=== PATIENT | male | born 1935 | race Caucasian/White ===

== ENCOUNTER → 2016-10-11 | Outpatient (CLI) | payer OTHER ==
[~2016-10-11] MED LIST: ALIGN4 MG PO; APAP500 PO; ATORVASTATIN CA20 MG PO; BACLOFEN 10 MG10 MG PO; BACLOFEN 10MG T10 MG PO; BACTRIM DS TAB1 EACH PO; BENADRYL25 MG PO; CARDIZEM CD180 MG PO; CENTRUM SILVER1 EAC4 PO; CIPRO250 M1 PO; CIPRO500 MG PO; CIPROFLOXACIN500 M1 PO; COLACE100 MG PO; CORDARONE200 MG PO; CYCLOBENZAPRINE5 MG PO; DILTIAZEM ER60 M1 PO; DULERA 100 MCG/13 GM; DUONEB 2.5-0.5 M3 ML INH; ENULOSE10 GM/15 M PO; FENTANYL TD; FLAGYL500 MG PO; FLONASE 0.05%50 MCG NASAL; FOLIC ACID 1 MG1 MG PO; FOLIC ACID0.4 MG PO; FOLIC ACID1 MG; FOLIC ACID1 MG PO; GABAPENTIN 100100 MG PO; GLUCOPHAGE XR500 MG PO; HYDROCODONE-AP1 EAC6 PO; HYDROCODONE-APA1 TA1; HYDROCODONE-APA1 TA1 PO; IBUPROFEN 800800 MG PO; IRON325 PO; JANUVIA100 MG PO; KLOR-CON 10 ER10 MEQ PO; KLOR-CON 1010 MEQ PO; LACTULOSE10 GM/152; LANTUS SUBQ; LANTUS100 UNIT/M SUBQ; LASIX 20 MG TAB20 MG PO; LATUDA20 MG PO; LEVAQUIN 500 M500 M2 PO; LEVEMIR100 UNIT/1 SUBQ; LEVOTHYROXINE0.05 MG PO; LIDODERM 5%1 PATC1 TRANSDERM; LIORESAL 10 MG10 MG PO; LISINOPRIL10 MG PO; LOPRESSOR 50 MG50 M1 PO; LORAZEPAM 1 MG T1 M1 PO; MAGNESIUM400 MG PO; MAGOX 400400 MG PO; METAXALONE400 MG PO; METAXALONE800 MG PO; METFORMIN HCL500 MG PO; MIRALAX17 GM; MIRALAX17 GM PO; MS CONTIN15 MG PO; MULTIVITAMINS1 EAC7 PO; NEURONTIN 300300 M1 PO; NORCO 7.5-3251 EACH PO; NOVOLOG100 UNIT/1 SUBQ; OMEPRAZOLE20 M2 PO; OXECTA5 MG PO; OXYCONTIN10 M1; OXYCONTIN10 M1 PO; OXYCONTIN20 M1 PO; PACERONE 200 M200 M1; PHENERGAN 25 MG25 M1 PO; PHENERGAN50 MG RC; POTASSIUM20 PO; PREDNISONE50 MG PO; PRILOSEC 20 MG20 MG PO; PRILOSEC20 MG PO; PROTONIX40 M2 PO; PROVENTIL HFA6.7 G1 INH; RESTORIL15 MG PO; SENNA8.6 M1 PO; SKELAXIN 800 M800 M1 PO; SORINE 80 MG TA80 M1 PO; SOTALOL80 MG PO; SPIRIVA INH; SPIRIVA18 MCG INH; THERA-M1 EAC1 PO; THIAMINE HCL100 MG PO; TOPROL XL50 MG; TOPROL XL50 MG PO; TRAMADOL 50 MG50 MG PO; TRAZODONE HCL50 MG PO; TYLENOL325 MG PO; ULTRAM 50MG TAB50 MG PO; UNICOMPLEX M TA1 TA1 PO; URIBEL CAPSULE1 EACH PO; VIAGRA100 MG; VIAGRA100 MG PO; VIAGRA50 MG PO; VITAMIN B-1100 M1; VITAMIN B-1100 M1 PO; VITAMIN D 5050000 I1 PO; VITAMIN D1000 UNI1 PO; VITAMIN D3400 UNIT PO; VYTORIN 10-401 EACH PO; ZETIA10 MG PO; ZOCOR40 MG PO; ZOFRAN ODT4 MG PO
== END ==
LOC: HYPER 07:06
DX: E11.621 Type 2 diabetes mellitus with foot ulcer (principal); L97.511 Non-pressure chronic ulcer of other part of right foot limited to breakdown of skin; J44.9 Chronic obstructive pulmonary disease, unspecified; E11.610 Type 2 diabetes mellitus with diabetic neuropathic arthropathy; D69.6 Thrombocytopenia, unspecified; D50.8 Other iron deficiency anemias; K21.9 Gastro-esophageal reflux disease without esophagitis; I48.91 Unspecified atrial fibrillation; I10 Essential (primary) hypertension; Z79.84 Long term (current) use of oral hypoglycemic drugs; Z87.891 Personal history of nicotine dependence; Z72.89 Other problems related to lifestyle

== ENCOUNTER 2017-08-04 01:27 | Inpatient (IN) | payer OTHER ==
[~2017-08-04] VITALS: Ht 182.9 cm; Wt 71.3 kg
[2017-08-04] VITALS (36 sets, daily range): BP systolic 55–133; BP diastolic 33–106
--- NOTE | ~2017-08-04 | HC ---
[facility] [place] [address] CONSULTATION Name: FATEMEH ARANA Room #: 429-P [facility] IN ..#: [id number] Admission: 08/04/17 Attend Phys: Carlo Cole MD Discharge: 08/09/17 Date of : 37 Report #: [id number] THIS REPORT FOR: //name// CC: Carlo Cole [facility] unknown DATE OF SERVICE: 08/08/2017 HISTORY OF PRESENT ILLNESS: The patient is an 81-year-old white male admitted with increased shortness of breath, tachycardia, and atrial fibrillation. He was noted to have sepsis with atrial fibrillation with rapid ventricular rate and acute renal insufficiency. He was diagnosed with ETOH withdrawal and has been belligerent to the staff. Drug screening was positive for marijuana. He is currently in ETOH withdrawal and has needed Ativan and Haldol. We are seeing him in rehabilitation medicine consultation. PAST MEDICAL HISTORY: Includes COPD. He denied the need for O2 or nebulizers. There is a history of Nfdeuni-Sfbri-Vrutg disease. He was premorbidly wheelchair bound. He also has a history of prostate CA, diabetes mellitus type 2, hypertension, malignant melanoma, and GERD. MEDICATIONS: Please see the full medication listing. ALLERGIES: AMOXICILLIN CAUSES EMESIS. HABITS: Former smoker, quit in the year 1999. Alcohol two bourbon or vodka drinks per day. SOCIAL HISTORY: Lives in a house by himself, wheelchair bound, has a stair glide apparently had a caregiver that is involved and there is note of the home health care case manager ____ that assists. He is from his , but she is involved and apparently visits or checks in on him a couple of times a week. REVIEW OF SYSTEMS: Currently sedated. PHYSICAL EXAMINATION: Sedated 81-year-old male wanting to sleep. EXTREMITIES: Functional range of motion of the upper extremities. Lower extremities are probably grossly 3/5. He has been max assist with attempt to sit to stand, bed to chair was max assist. ASSESSMENT: An 81-year-old male with the following problem list: 1. Phnqlrp-Ruizi-Okghi disease, wheelchair bound. 2. ETOH withdrawal. 3. Sepsis. 4. Atrial fibrillation with rapid ventricular rate. 5. Diabetes mellitus type 2. [facility] [address] [place] [address] CONSULTATION Name: FATEMEH ARANA Room #: 429-P [facility] IN ..#: [id number] Admission: 08/04/17 Attend Phys: Carlo Cole MD Discharge: 08/09/17 Date of : 36 Report #: [id number] 6. Elevated liver function tests. 7. Acute renal insufficiency, resolved. PLAN: The patient has been refusing therapy has been an alcohol withdrawal. I question if he will cooperate with any type of rehabilitation therapy program. At this point, we will continue to follow. <ELECTRONICALLY SIGNED> By: Dima Beard MD 08/20/17 1030 1109 1948 Dima Beard MD /GELA
--- NOTE | ~2017-08-04 | EKG ---
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 : 1935 Requested By: Nohemy King Order Number: [id number] MD: Nicolas Patel Measurements Intervals [place] Rate: 99 P: 107 HI: 107 QRS: -25 QRSD: 102 T: 184 QT: 442 QTc: 568 Interpretive Statements Atrial fibrillation Nonspecific ST and T wave abnormality Compared to ECG 08/04/2017 01:24:28 Heart rate has slowed ST and T wave abnormality is less pronounced Baseline artifact limits interpretation Electronically Signed On 08-06-2017 12:57:50 CDT by Nicolas Patel [email or web address] <ELECTRONICALLY SIGNED> By: Nicolas Patel MD, [facility] 08/06/17 1257 0831 0831 Nicolas Patel MD, [facility] /EPI
--- NOTE | ~2017-08-04 | EKG ---
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: Nahum GODFREY : 1935 Requested By: Sanket Sanchez Order Number: [id number] MD: Nicolas Patel Measurements Intervals [place] Rate: 131 P: [place]: QRS: -33 QRSD: 110 T: 181 QT: 314 QTc: 464 Interpretive Statements Atrial fibrillation Abnormal R-wave progression, late transition Inferior infarct, old Repolarization abnormality, prob rate related Compared to ECG 12/16/2015 09:53:53 ST and T wave abnormality is more pronounced Electronically Signed On 08-06-2017 12:56:54 CDT by Nicolas Patel [email or web address] <ELECTRONICALLY SIGNED> By: Nicolas Patel MD, [facility] 08/06/17 1256 0109 0109 Nicolas Patel MD, [facility] /EPI
--- NOTE | ~2017-08-04 | EKG ---
[address] [place] [address] ELECTROCARDIOGRAM REPORT Name: FATEMEH ARANA Room #: 236-P ADM IN M.R.#: [id number] Admission: 08/04/17 Attend Phys: Kahlil Alvarado DO Discharge: Date of : 36 Report #: [id number] THIS REPORT FOR: //name// [facility] ED Test Date: 2017-08-04 Test Time: 01:24:28 Pat Name: FATEMEH ARANA Department: Room: 236 P Gender: M Awning Spreader: RUSSELL : 1935 Requested By: Nicolas Patel Order Number: [id number] MD: Nicolas Patel Measurements Intervals [place] Rate: 195 P: 69 SC: 151 QRS: -43 QRSD: 78 T: 191 QT: 237 QTc: 427 Interpretive Statements Supraventricular tachycardia, probably atrial fibrillation with a rapid ventricular response Abnormal R-wave progression, late transition Repolarization abnormality, prob rate related Artifact in lead(s) I,II,III,aVR,aVL,aVF,V4 Compared to ECG 12/16/2015 09:53:53 ST and T wave abnormality is more pronounced heart rate has increased Electronically Signed On 08-04-2017 14:31:16 CDT by Nicolas Patel [email or web address] <ELECTRONICALLY SIGNED> By: Nicolas Patel MD, [facility] 08/04/17 1431 0124 0124 Nicolas Patel MD, [facility] /EPI
--- NOTE | ~2017-08-04 | HC ---
[facility] [place] [address] CONSULTATION Name: FATEMEH ARANA Room #: 429-P [facility] IN .R.#: [id number] Admission: 08/04/17 Attend Phys: Carlo Cole MD Discharge: Date of : 36 Report #: [id number] THIS REPORT FOR: //name// CC: FAM unknown Kahlil Alvarado DATE OF SERVICE: 08/04/2017 HISTORY OF PRESENT ILLNESS: The patient is an 81-year-old gentleman with history of diabetes, Qkvsfls-Mhiey-Aaqiz, hypertension, dyslipidemia and paroxysmal atrial fibrillation. Last evening he developed the sudden onset of shortness of breath. Paramedics were summoned and he was found to be in atrial fibrillation with a rapid ventricular response. He was treated with intravenous Cardizem and has converted back to sinus rhythm. In review of his records, it appears that he has had several paroxysms of atrial fibrillation. He tells me in the past there was a decision not to anticoagulate him. The shortness of breath resolved with yarsanism of sinus rhythm. He denies chest heaviness or pressure. He denies history of palpitations, near syncope or syncope. ALLERGIES: HE IS ALLERGIC TO AMOXICILLIN. MEDICATIONS: Include lisinopril 10 mg daily, diltiazem CD 180 mg daily, metformin 1000 mg twice daily, atorvastatin 20 mg daily, levothyroxine 75 mcg daily, tramadol, omeprazole, metoprolol 50 mg twice daily, iron one tablet daily. PAST MEDICAL HISTORY: His past history and medical records have been reviewed and include a history of prior kidney stones with surgery, hypertension, diabetes, Maozowy-Qiydd-Nmcai, dyslipidemia, chronic obstructive pulmonary disease, alcohol use, thrombocytopenia. SOCIAL HISTORY: He is a former smoker. He lives with his independently. FAMILY HISTORY: Notable for hypertension. REVIEW OF SYSTEMS: All systems negative except as that noted above. PHYSICAL EXAMINATION: GENERAL: Reveals a pleasant gentleman who is hard of hearing. VITAL SIGNS: Blood pressure is 112/75, heart rate of 91 and regular. He is afebrile. HEENT: There are neither xanthelasma, subcutaneous xanthomata, oral mucosal or digital cyanosis or kyphoscoliosis present. CHEST: Clear to auscultation and percussion. CARDIAC: Regular rate and rhythm with normal S1, S2. No murmurs, rubs. ABDOMEN: Soft and nontender. [facility] [address] [place] [address] CONSULTATION Name: FATEMEH ARANA Room #: 429-P [facility] IN ..#: [id number] Admission: 08/04/17 Attend Phys: Carlo Cole MD Discharge: Date of : 36 Report #: [id number] EXTREMITIES: Without cyanosis, clubbing or edema. Radial pulses are 2+. NEUROLOGIC: Alert with a nonfocal exam. MUSCULOSKELETAL: His joint change is consistent with Xevcift-Wtspc-Zitae. LABORATORY DATA: Sodium 144, potassium 5.2, creatinine 1.8. Troponin of 0. White count 9.8, hemoglobin 18, hematocrit 55, platelet count 38,000. TSH 9.8. Chest x-ray demonstrates an indeterminate nodule in the left mid lung. IMPRESSION: 1. Atrial fibrillation, now in sinus rhythm. 2. Chronic kidney disease. 3. Diabetes. 4. Reflux disease. 5. Chronic obstructive pulmonary disease. 6. Dyslipidemia. 7. Ubpfozt-Pvkai-Bjzbx. 8. History of anemia, iron deficiency with history of gastritis and diverticulosis. 9. Thrombocytopenia, chronic. RECOMMENDATIONS: 1. Increase Cardizem dose. Continue use of metoprolol. 2. Obtain records from [facility]. The paroxysmal atrial fibrillation does not appear to be new, although recurrent. There has been a decision made in the past not to use systemic anticoagulation, I suspect in part related to his comorbidities and history of iron deficiency anemia. 3. Records from [facility] have been requested for review. <ELECTRONICALLY SIGNED> By: Nicolas Patel MD, FACC 08/07/17 0859 0816 1444 Nicolas Patel MD, FACC /nt
--- NOTE | ~2017-08-04 | 2DMMODE ---
[facility] [address] [place] [address] 2 D/M-MODE ECHOCARDIOGRAM Name: SUMITFATEMEH Kimi Room #: 236-P [facility] IN ..#: [id number] Admission: 08/04/17 Attend Phys: Carlo Cole MD Discharge: Date of : 37 Date of Service: 08/05/17 0935 Report #: [id number] THIS REPORT FOR: //name// APPROVED REPORT Study performed: 08/05/2017 07:58:43 EXAM: Comprehensive 2D, Doppler, and color-flow Echocardiogram Patient Location: ICU Room #: [facility] Status: routine BSA: 1.92 HR: 79 bpm BP: 113/77 mmHg Other Information Study Quality: Technically Difficult Technically limited study due to lung disease, inability to position patient. Indications COPD Diabetes Dyspnea Elevated BNP Echo Enhancing Agent Indication: Endocardial border delineation Agent(s) / Amount(s) Used: Optison 3 cc 2D Dimensions RVDd: 35.77 mm LVEF(%): 39.75 (>50%) IVSd: 13.80 (7-11mm) LVOT Diam: 22.96 (18-24mm) LVDd: 44.32 mm PWd: 14.17 (7-11mm) Ascending Ao: 36.56 (22-36mm) LVDs: 35.81 (25-40mm) Aortic Root: 35.59 mm IVC: 19.00 mm Huizar's LVEF: 39.75 % Volumes Left Atrial Volume (Systole) Single Plane 4CH: 69.50 mL Single Plane 2CH: 61.16 mL LA ESV Index: 39.00 mL/m2 Aortic Valve [facility] [address] [place] [address] 2 D/M-MODE ECHOCARDIOGRAM Name: FATEMEH ARANA Room #: 236-P [facility] IN [facility]#: [id number] Admission: 08/04/17 Attend Phys: Carlo Cole MD Discharge: Date of : 37 Date of Service: 08/05/17 0935 Report #: [id number] LVOT Max P.02 mmHg LVOT Max V: 0.50 m/s LEANNE Vmax: 3.06 cm2 Mitral Valve MV Decel. Time: 254.90 ms MV E Max Ruperto.: 0.68 m/s IVRT: 143.02 ms Pulmonary Valve PV Peak Ruperto.: 0.66 m/s PV Peak Gr.: 1.73 mmHg Tricuspid Valve TR Peak Ruperto.: 2.68 m/s RAP Estimate: 5.00 mmHg TR Peak Gr.: 28.70 mmHg PA Pressure: 34.00 mmHg Left Ventricle The left ventricle is normal size. There is normal LV segmental wall motion. Mild concentric left ventricular hypertrophy. Left ventricular systolic function is normal. LVEF is 55%. This study is not technically sufficient to allow evaluation of the LV diastolic function. Right Ventricle The right ventricle is normal size. The right ventricular systolic function is normal. Atria Left atrium is mildly dilated. Right atrium is dilated. Aortic Valve Mild aortic valve sclerosis, trileaflet. No aortic regurgitation is present. There is no aortic valvular stenosis. Mitral Valve Mild mitral annular calcification. Mild mitral regurgitation. No evidence of mitral valve stenosis. Tricuspid Valve The tricuspid valve is normal in structure. Mild tricuspid regurgitation. PAP is estimated at 34 mmHg. Pulmonic Valve Pulmonic valve is not well visualized. [facility] [place] [address] 2 D/M-MODE ECHOCARDIOGRAM Name: FATEMEH ARANA Room #: 236-P [facility] IN M.R.#: [id number] Admission: 08/04/17 Attend Phys: Carlo Cole MD Discharge: Date of : 37 Date of Service: 08/05/17 0935 Report #: [id number] Great Vessels The aortic root is normal in size. IVC is normal in size and collapses >50% with inspiration. Pericardium There is no pericardial effusion. <Conclusion> Left ventricular systolic function is normal. There is normal LV segmental wall motion. LVEF is 55%. Mild aortic valve sclerosis, trileaflet. No aortic regurgitation or stenosis Mild mitral annular calcification. Mild mitral regurgitation. Mild tricuspid regurgitation. Pulmonary artery pressure estimated at 34 mmHg. There is no pericardial effusion. <ELECTRONICALLY SIGNED> By: Nicolas Patel MD, [facility] 08/05/17934 4 4 Nicolas Patel MD, FAC /INF
[2017-08-04 03:02] LABS: ABSOLUTE NEUTROPHILS 7.2 thou/uL (1.4-8.2); EOSINOPHILS 1.2 % (0.0-3.0); HEMOGLOBIN 18.6 gm/dL (14.0-18.0); RDW 14.7 % (10.5-14.5)
[2017-08-04 03:04] LABS: BASOPHILS 0.4 % (0.0-2.0); HEMATOCRIT 55.2 % (42.0-52.0); LYMPHOCYTES 20.5 % (24.0-44.0); MCH 35.4 pg (26.0-34.0); MCHC 33.6 g/dL (28.0-37.0); MCV 105.3 fL (80.0-100.0); MONOCYTES 4.2 % (1.0-8.0); PLATELET COUNT 38 thou/uL (150-400); POLYS 73.7 % (36.0-66.0); RBC 5.25 mil/uL (4.50-6.00); WBC 9.8 thou/uL (4.0-11.0)
[2017-08-04 03:17] LABS: ANION GAP 22 mmol/L (7-16); BUN 27 mg/dL (7-18); CHLORIDE 103 mmol/L (98-107); CO2 19 mmol/L (21-32); CREATININE 1.8 mg/dL (0.7-1.3); GLUCOSE 216 mg/dL (74-106); POTASSIUM 5.2 mmol/L (3.5-5.1); SODIUM 144 mmol/L (136-145)
[2017-08-04 03:34] LABS: MAGNESIUM 1.5 mg/dL (1.8-2.4); SGOT 58 U/L (15-37); SGPT 102 U/L (30-65); TOTAL BILIRUBIN 2.5 mg/dL (<0.1-1.0); TOTAL PROTEIN 7.5 g/dL (6.4-8.2)
[2017-08-04 03:35] LABS: ALBUMIN 3.3 g/dL (3.4-5.0); TROPONIN-I < 0.04 ng/mL (<0.06)
[2017-08-04 03:54] LABS: CALCIUM 9.9 mg/dL (8.5-10.1)
[2017-08-04 06:09] LABS: URINE BILIRUBIN NEGATIVE (Negative); URINE BLOOD NEGATIVE (Negative); URINE CLARITY CLEAR; URINE COLOR YELLOW; URINE GLUCOSE-RANDOM* TRACE (Negative); URINE KETONES TRACE (Negative); URINE LEUKOCYTES-REFLEX NEGATIVE (Negative); URINE NITRITE-REFLEX NEGATIVE (Negative); URINE PROTEIN (DIPSTICK) NEGATIVE (Negative); URINE SPECIFIC GRAVITY 1.015 (1.005-1.035); URINE UROBILINOGEN 0.2 E.U./dl (0.2-1.0)
[2017-08-04] MEDS ORDERED: LOPRESSOR25 PO (10:18)
[2017-08-04] MEDS ORDERED: TRAZODONE HCL50 MG PO (10:22)
[2017-08-04 16:06] LABS: GLYCOHEMOGLOBIN (HGB A1C) 5.6 % (4.8-5.6)
[2017-08-05] VITALS (11 sets, daily range): BP systolic 97–144; BP diastolic 51–82
[2017-08-05 04:41] LABS: ABSOLUTE NEUTROPHILS 4.2 thou/uL (1.4-8.2); BASOPHILS 0.9 % (0.0-2.0); EOSINOPHILS 2.8 % (0.0-3.0); HEMATOCRIT 38.9 % (42.0-52.0); LYMPHOCYTES 13.5 % (24.0-44.0); MCH 34.9 pg (26.0-34.0); MCHC 33.7 g/dL (28.0-37.0); MCV 103.6 fL (80.0-100.0); MONOCYTES 6.4 % (1.0-8.0); POLYS 76.4 % (36.0-66.0); RBC 3.76 mil/uL (4.50-6.00); RDW 14.5 % (10.5-14.5); WBC 5.5 thou/uL (4.0-11.0)
[2017-08-05 04:43] LABS: CREATININE 1.2 mg/dL (0.7-1.3); MAGNESIUM 1.4 mg/dL (1.8-2.4); POTASSIUM 3.1 mmol/L (3.5-5.1)
[2017-08-05 04:44] LABS: HEMOGLOBIN 13.1 gm/dL (14.0-18.0)
[2017-08-05 04:50] LABS: CALCIUM 7.8 mg/dL (8.5-10.1)
[2017-08-05 07:16] LABS: PLATELET COUNT 28 thou/uL (150-400)
[2017-08-05 14:05] LABS: MAGNESIUM 1.3 mg/dL (1.8-2.4); POTASSIUM 3.5 mmol/L (3.5-5.1)
[2017-08-05 21:51] LABS: MAGNESIUM 1.6 mg/dL (1.8-2.4); POTASSIUM 3.8 mmol/L (3.5-5.1)
[2017-08-06] VITALS (19 sets, daily range): BP systolic 96–139; BP diastolic 59–94
[2017-08-06 05:05] LABS: MAGNESIUM 2.1 mg/dL (1.8-2.4); PHOSPHORUS 2.1 mg/dL (2.5-4.9)
[2017-08-07 00:15] VITALS: BP 128/80
[2017-08-07 04:23] VITALS: BP 126/91
[2017-08-07 07:35] VITALS: BP 129/85
[2017-08-07 15:30] VITALS: BP 120/81
[2017-08-07 20:00] VITALS: BP 121/75
[2017-08-08 06:31] VITALS: BP 139/85
[2017-08-08 07:20] VITALS: BP 114/82
[2017-08-08] MEDS ORDERED: LOPRESSOR100 M1 PO (13:51)
[2017-08-08 22:10] VITALS: BP 131/89
[2017-08-09 04:06] VITALS: BP 136/85
[2017-08-09 07:37] VITALS: BP 127/72
[2017-08-09 12:33] VITALS: BP 127/72
[2017-08-09 13:14] VITALS: BP 127/72
== END 2017-08-09 13:56 | disposition home health service (06) | DRG 896 ==
LOC: ER 01:27 → ICU 04:12 → EROBS 04:12 → ICU 04:58 → 4E 08-06 17:52 → ENTRNSPT 08-09 13:17 → EDTRNSPTSTS 08-09 13:38 → 4E 08-09 13:56
PROVIDERS: Emergency Medicine; Hospitalist; Nurse Practitioner Acute Care
DX: F10.239 Alcohol dependence with withdrawal, unspecified (principal); N17.0 Acute kidney failure with tubular necrosis; I47.1 Supraventricular tachycardia; E03.9 Hypothyroidism, unspecified; K21.9 Gastro-esophageal reflux disease without esophagitis; J44.9 Chronic obstructive pulmonary disease, unspecified; I48.91 Unspecified atrial fibrillation; E83.42 Hypomagnesemia; E78.5 Hyperlipidemia, unspecified; N18.9 Chronic kidney disease, unspecified; E11.22 Type 2 diabetes mellitus with diabetic chronic kidney disease; G60.0 Hereditary motor and sensory neuropathy; D69.6 Thrombocytopenia, unspecified; I12.9 Hypertensive chronic kidney disease with stage 1 through stage 4 chronic kidney disease, or unspecified chronic kidney disease; R91.1 Solitary pulmonary nodule; F39 Unspecified mood [affective] disorder; D50.9 Iron deficiency anemia, unspecified; Z82.49 Family history of ischemic heart disease and other diseases of the circulatory system; Z79.899 Other long term (current) drug therapy; Z88.1 Allergy status to other antibiotic agents; Z87.442 Personal history of urinary calculi; Z85.46 Personal history of malignant neoplasm of prostate; Z87.891 Personal history of nicotine dependence
CPT/HCPCS: 10078; 10783

== ENCOUNTER 2017-08-29 13:36 | Inpatient (IN) | payer OTHER ==
[~2017-08-29] VITALS: Ht 182.9 cm; Wt 78.3 kg
--- NOTE | ~2017-08-29 | EKG ---
[address] [address] ELECTROCARDIOGRAM REPORT Name: TRINH ARANARICK Kimi Room #: 170-4 ADM IN M.R.#: [id number] Admission: 08/29/17 Attend Phys: Derek García MD Discharge: Date of : 36 Report #: [id number] THIS REPORT FOR: //name// [facility] ED Test Date: 2017-08-29 Test Time: 14:49:34 Pat Name: FATEMEH ARANA Department: Room: 170 Gender: M Laryngologist: SAMUEL : 1935 Requested By: Haley Garrett Order Number: [id number] MD: Lenny Rodriguez Measurements Intervals [place] Rate: 129 P: AR: QRS: -42 QRSD: 81 T: 63 QT: 334 QTc: 490 Interpretive Statements Atrial fibrillation Ventricular premature complex Electronically Signed On 08-29-2017 16:13:52 CDT by Lenny Rodriguez [email or web address] <ELECTRONICALLY SIGNED> By: Lenny Rodriguez MD 08/29/17 1613 1449 1449 MD TOM Youngblood
--- NOTE | ~2017-08-29 | HC ---
[facility] [place] [address] CONSULTATION Name: FATEMEH ARANA Room #: 202-P [facility] IN .R.#: [id number] Admission: 08/29/17 Attend Phys: Derek Garcaí MD Discharge: 08/30/17 Date of : 36 Report #: [id number] THIS REPORT FOR: //name// CC: [facility] physician/PCP Derek García HISTORY OF PRESENT ILLNESS: This patient is seen in consultation regarding thrombocytopenia and anemia. He was recently discharged from [facility] in early July with similar findings. He was admitted with complaints of nausea, vomiting, diarrhea with questionable melena. His platelets have dropped from their usual 30,000-16,000. He is a patient of Dr. Lewis and underwent previous resection of a melanoma involving his face with subsequent X-ray therapy to the left neck and upper chest for a stage 3, T4B, N1M0 malignant melanoma involving 1 of 2 lymph nodes with small perineural invasion and a Breslow thickness of 4.7 mm. He is a known alcohol consumer and states that he has been drinking. His earlier labs, from when he last saw Dr. Lewis, showed a white count of 6600, hematocrit of 51% and a platelet count of 33,000. PAST MEDICAL HISTORY: Significant for prior kidney stones with medically-managed hypertension, diabetes, dyslipidemia, chronic obstructive pulmonary disease and Tqrmemu-Qloka-Oaatl. MEDICATIONS: Listed on the MFR. ALLERGIES: AMOXICILLIN. SOCIAL HISTORY: He lives independently and is a former smoker. He continues to drink alcohol on a daily basis. FAMILY HISTORY: Positive for hypertension. REVIEW OF SYSTEMS: Negative for any bright red blood loss. He has had no gum, nose or mouth bleeding that he has detected. Remaining system review is as in history of present illness. PHYSICAL EXAMINATION: GENERAL: Shows an alert male who is hard of hearing. He is currently normotensive. HEENT: Shows no xanthelasma. LUNGS: His chest is clear. CARDIOVASCULAR: Normal S1, S2. ABDOMEN: Did not reveal palpable spleen. EXTREMITIES: No clubbing, cyanosis, edema. NEUROLOGIC: No focal localizing signs. [facility] [address] [place] [address] CONSULTATION Name: FATEMEH ARANA Room #: 202-P [facility] IN [facility].#: [id number] Admission: 08/29/17 Attend Phys: Derek García MD Discharge: 08/30/17 Date of : 36 Report #: [id number] PSYCHIATRIC: Not agitated or confused. LABORATORY DATA: Showed a platelet count of 16,000 with normal coagulation studies and fibrinogen. CT scan showed nodular liver, compatible with cirrhosis. ASSESSMENT AND PLAN: Pmewx-in-fueehjj thrombocytopenia in a patient with known liver disease/cirrhosis, ongoing alcohol consumption. On admission, he was hypotensive as well as having elevated lactic acidosis, I suspect this is the cause of his further drop in thrombocytopenia. He is not in need of platelet transfusion at this time and would observe only and I suspect that he will recover towards his previous 30,000 baseline. He does not currently have evidence of either disseminated intravascular coagulation or thrombotic thrombocytopenic purpura. Thanks for asking us to be involved in his care. By: 1150 1325 Aggie Sutton MD /nt
[~2017-08-29 13:36] MED LIST changes: +LOPRESSOR100 M1 PO; +LOPRESSOR25 PO
[2017-08-29 13:39] VITALS: BP 110/60
[2017-08-29 14:04] LABS: HEMOGLOBIN 17.1 gm/dL (14.0-18.0); MCHC 33.6 g/dL (28.0-37.0)
[2017-08-29 14:06] LABS: EOSINOPHILS 0.6 % (0.0-3.0); HEMATOCRIT 50.8 % (42.0-52.0); MCH 34.1 pg (26.0-34.0); MCV 101.6 fL (80.0-100.0); POLYS 68.4 % (36.0-66.0); RDW 15.1 % (10.5-14.5); WBC 8.7 thou/uL (4.0-11.0)
[2017-08-29 14:11] LABS: CALCIUM 8.8 mg/dL (8.5-10.1); CREATININE 1.5 mg/dL (0.7-1.3); POTASSIUM 4.5 mmol/L (3.5-5.1)
[2017-08-29 14:17] LABS: ALBUMIN 3.1 g/dL (3.4-5.0); TOTAL BILIRUBIN 1.7 mg/dL (<0.1-1.0); TOTAL PROTEIN 6.7 g/dL (6.4-8.2)
[2017-08-29 14:41] LABS: PLATELET COUNT 28 thou/uL (150-400)
[2017-08-29 16:06] LABS: URINE BILIRUBIN 1+ (Negative); URINE BLOOD NEGATIVE (Negative); URINE CLARITY CLEAR; URINE COLOR YELLOW; URINE GLUCOSE-RANDOM* NEGATIVE (Negative); URINE KETONES 1+ (Negative); URINE LEUKOCYTES NEGATIVE (Negative); URINE NITRITE NEGATIVE (Negative); URINE PROTEIN (DIPSTICK) TRACE (Negative); URINE SPECIFIC GRAVITY 1.025 (1.005-1.035)
[2017-08-29 16:09] LABS: ICTOTEST (BILI CONFIRMATORY) Negative (Negative)
[2017-08-29 17:10] VITALS: BP 105/67; BP 121/67
[2017-08-29 18:13] VITALS: BP 106/74
[2017-08-29 19:46] VITALS: BP 128/74
[2017-08-29 20:37] LABS: HEMOGLOBIN 16.2 gm/dL (14.0-18.0)
[2017-08-29 20:39] LABS: ABSOLUTE NEUTROPHILS 4.9 thou/uL (1.4-8.2); BASOPHILS 1.1 % (0.0-2.0); EOSINOPHILS 0.7 % (0.0-3.0); HEMATOCRIT 47.5 % (42.0-52.0); LYMPHOCYTES 14.8 % (24.0-44.0); MCH 34.8 pg (26.0-34.0); MCHC 34.2 g/dL (28.0-37.0); MCV 101.9 fL (80.0-100.0); MONOCYTES 8.4 % (1.0-8.0); RBC 4.66 mil/uL (4.50-6.00); RDW 15.2 % (10.5-14.5); WBC 6.6 thou/uL (4.0-11.0)
[2017-08-29 20:43] LABS: PLATELET COUNT 17 thou/uL (150-400)
[2017-08-29 20:59] LABS: MAGNESIUM 1.1 mg/dL (1.8-2.4)
[2017-08-29 21:17] LABS: FOLIC ACID 8.8 ng/mL (8.6-58.9)
[2017-08-29 21:21] LABS: AMP/METHAMP Negative (Negative); BARBITURATES Negative (Negative); BENZODIAZEPINES Negative (Negative); COCAINE Negative (Negative); METHADONE Negative (Negative); OPIATES Negative (Negative); PCP Negative (Negative)
[2017-08-29 23:54] VITALS: BP 82/55
[2017-08-30 03:31] VITALS: BP 89/57
[2017-08-30 06:09] LABS: WBC 5.5 thou/uL (4.0-11.0)
[2017-08-30 06:10] LABS: HEMATOCRIT 39.7 % (42.0-52.0); MCH 34.6 pg (26.0-34.0); MCHC 34.2 g/dL (28.0-37.0); MCV 101.4 fL (80.0-100.0); RBC 3.92 mil/uL (4.50-6.00)
[2017-08-30 06:20] LABS: CREATININE 1.2 mg/dL (0.7-1.3); POTASSIUM 3.8 mmol/L (3.5-5.1)
[2017-08-30 06:31] LABS: HEMOGLOBIN 13.6 gm/dL (14.0-18.0)
[2017-08-30 07:05] VITALS: BP 120/91
[2017-08-30 09:17] LABS: % SATURATION 73 % (20-39); IRON 133 ug/dL (65-175); TIBC 183 ug/dL (250-450)
[2017-08-30 09:18] LABS: ALBUMIN 2.8 g/dL (3.4-5.0); DIRECT BILIRUBIN 0.7 mg/dL (<0.1-0.3); TOTAL BILIRUBIN 1.6 mg/dL (<0.1-1.0); TOTAL PROTEIN 5.8 g/dL (6.4-8.2)
[2017-08-30 09:41] LABS: ABSOLUTE RETIC COUNT 0.0507 10^6/uL; OBSERVED RETIC COUNT 1.28 % (0.6-2.6)
[2017-08-30 11:08] VITALS: BP 80/52
[2017-08-30 11:26] LABS: APTT 27.3 Seconds (24.5-32.8); FIBRINOGEN 209.5 mg/dL (210-360); INR 1.2; PROTIME 11.9 Seconds (9.3-11.4)
[2017-08-30 22:09] LABS: HAV IgM AB (ANTI-HAV IgM) Negative (Negative); HEPATITIS B SURFACE AG Negative (Negative); HEPATITIS C VIRUS AB <0.1 (0.0-0.9)
== END 2017-08-30 15:55 | disposition left against medical advice (07) | DRG 377 ==
LOC: ER 13:36 → EROBS 15:42 → 2N 15:42
PROVIDERS: Internal Medicine; Internal Medicine Hematology & Oncology; Nurse Practitioner; Physician Assistant
DX: K92.2 Gastrointestinal hemorrhage, unspecified (principal); E43 Unspecified severe protein-calorie malnutrition; E03.9 Hypothyroidism, unspecified; I48.91 Unspecified atrial fibrillation; N18.9 Chronic kidney disease, unspecified; I12.9 Hypertensive chronic kidney disease with stage 1 through stage 4 chronic kidney disease, or unspecified chronic kidney disease; F10.10 Alcohol abuse, uncomplicated; I25.10 Atherosclerotic heart disease of native coronary artery without angina pectoris; D50.9 Iron deficiency anemia, unspecified; E11.22 Type 2 diabetes mellitus with diabetic chronic kidney disease; F31.9 Bipolar disorder, unspecified; D69.6 Thrombocytopenia, unspecified; E78.5 Hyperlipidemia, unspecified; K70.30 Alcoholic cirrhosis of liver without ascites; J44.9 Chronic obstructive pulmonary disease, unspecified; K21.9 Gastro-esophageal reflux disease without esophagitis; Z87.442 Personal history of urinary calculi; Z85.820 Personal history of malignant melanoma of skin; Z85.46 Personal history of malignant neoplasm of prostate; Z87.891 Personal history of nicotine dependence; Z79.51 Long term (current) use of inhaled steroids; Z79.899 Other long term (current) drug therapy; Z88.1 Allergy status to other antibiotic agents; Z82.49 Family history of ischemic heart disease and other diseases of the circulatory system
CPT/HCPCS: 10078

== ENCOUNTER 2017-09-23 12:14 | Inpatient (IN) | payer OTHER ==
[~2017-09-23] VITALS: Ht 182.9 cm; Wt 74.8 kg
--- NOTE | ~2017-09-23 | EKG ---
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: SAMUEL : 1935 Requested By: Betito Wilkins Order Number: [id number] MD: Nicolas Patel Measurements Intervals [place] Rate: 147 P: NC: QRS: -45 QRSD: 83 T: 61 QT: 327 QTc: 512 Interpretive Statements Atrial fibrillation with rapid V-rate Low voltage QRS Poor R wave progression Nonspecific ST and T wave abnormality Compared to ECG 08/29/2017 14:49:34 Nonspecific change in the ST and T-wave segments Electronically Signed On 09-24-2017 8:50:38 CDT by Nicolas Patel [email or web address] <ELECTRONICALLY SIGNED> By: Nicolas Patel MD, [facility] 09/24/17 0850 1252 1252 Nicolas Patel MD, [facility] /EPI
--- NOTE | ~2017-09-23 | HC ---
[facility] [place] [address] CONSULTATION Name: FATEMEH ARANA Room #: 363-P [facility] IN [facility].#: [id number] Admission: 09/23/17 Attend Phys: Tyron Calvert MD Discharge: Date of : 36 Report #: [id number] THIS REPORT FOR: //name// CC: [facility] physician/PCP Tyron Calvert DATE OF SERVICE: 09/25/2017 HISTORY OF PRESENT ILLNESS: This gentleman was readmitted through the emergency room with known atrial fib and ongoing thrombocytopenia. I have been asked to evaluate his worsening platelet count, which has dropped subsequent to hospitalization. He was just seen on August 29 with thrombocytopenia and anemia. His platelets on admission were in the 60 and 47,000 range, dropping down to 12,000. He is a known alcohol consumer with ongoing consumption. He had been seen previously by Tomás Lewis at [facility] following resection of a melanoma involving of his face with subsequent radiation therapy to left neck and upper chest for a stage III T4b M1 M0 malignant melanoma involving 1 of 2 lymph nodes with a small focus of perineural invasion and a Breslow thickness of 4.7 mm. PAST MEDICAL HISTORY: Prior kidney stones and medically managed hypertension. He is diabetic with dyslipidemia, chronic obstructive pulmonary disease, and Zbiknlm-Bftne-Rjbma. MEDICATIONS: As listed on MFR. ALLERGIES: AMOXICILLIN. SOCIAL HISTORY: He lives independently and is reformed smoker. He continues to drink alcohol on a daily basis. FAMILY HISTORY: Positive for hypertension. REVIEW OF SYSTEMS: Negative for any gum, nose or mouth bleeding. These detected. He has not had evidence of bright red blood in stool. His remaining system review is negative. PHYSICAL EXAMINATION: GENERAL: Shows an alert male who is hard of hearing. HEENT: Shows no xanthelasma. CHEST: Clear. CARDIOVASCULAR: Normal S1, S2. ABDOMEN: Shows no palpable spleen. EXTREMITIES: No clubbing, cyanosis or edema. [facility] [address] [place] [address] CONSULTATION Name: FATEMEH ARANA Room #: 363-[facility] IN [facility].#: [id number] Admission: 09/23/17 Attend Phys: Tyron Calvert MD Discharge: Date of : 36 Report #: [id number] NEUROLOGIC: No focal localizing signs. PSYCHIATRIC: He is not agitated or confused. LYMPHATICS: No suspicious adenopathy. LABORATORY DATA: Shows thrombocytopenia as discussed. ASSESSMENT AND PLAN: Probable acute on chronic thrombocytopenia related to his known liver disease and cirrhosis, as well as ongoing alcohol consumption. I am concerned that this recent drop may be related to Lovenox. It was started prophylactically on hospitalization and I have held this pending results of heparin-associated antibody. Earlier studies last month showed no evidence of disseminated intravascular coagulation or thrombotic thrombocytopenic purpura and will be repeated. Further recommendations will be forthcoming. Thanks again for allowing me to see him with you in consultation and allowing me to participate in his care. <ELECTRONICALLY SIGNED> By: Missael Saldivar MD 10/02/17 2135 2115 0302 Aggie Sutton MD /nt
[2017-09-23 12:15] VITALS: BP 116/78
[2017-09-23 12:43] LABS: ABSOLUTE NEUTROPHILS 4.3 thou/uL (1.4-8.2); RBC 4.57 mil/uL (4.50-6.00); WBC 5.8 thou/uL (4.0-11.0)
[2017-09-23 12:44] LABS: EOSINOPHILS 0.7 % (0.0-3.0); HEMATOCRIT 45.9 % (42.0-52.0); HEMOGLOBIN 15.7 gm/dL (14.0-18.0); LYMPHOCYTES 15.7 % (24.0-44.0); MCH 34.3 pg (26.0-34.0); MCHC 34.2 g/dL (28.0-37.0); MCV 100.4 fL (80.0-100.0); MONOCYTES 8.8 % (1.0-8.0); POLYS 73.8 % (36.0-66.0)
[2017-09-23 12:48] LABS: CREATININE 1.2 mg/dL (0.7-1.3)
[2017-09-23 12:49] LABS: MAGNESIUM 1.1 mg/dL (1.8-2.4); POTASSIUM 4.7 mmol/L (3.5-5.1)
[2017-09-23 12:55] LABS: ALBUMIN 3.1 g/dL (3.4-5.0); DIRECT BILIRUBIN 1.1 mg/dL (<0.1-0.3); TOTAL PROTEIN 6.8 g/dL (6.4-8.2)
[2017-09-23 12:56] LABS: PLATELET COUNT 47 thou/uL (150-400); PLATELET ESTIMATE DECREASED
[2017-09-23 12:58] LABS: BE(vivo) -0.6 mmol/L (-2 to +3); HCO3 23.6 mmol/L (22.0-26.0); PCO2 VENOUS 37.9 mmHg (41.0-51.0); PO2 VENOUS 67.7 mmHg (35.0-45.0)
[2017-09-23 14:41] LABS: URINE BILIRUBIN 1+ (Negative); URINE BLOOD NEGATIVE (Negative); URINE CLARITY CLEAR; URINE COLOR YELLOW; URINE GLUCOSE-RANDOM* NEGATIVE (Negative); URINE KETONES 1+ (Negative); URINE LEUKOCYTES-REFLEX NEGATIVE (Negative); URINE NITRITE-REFLEX NEGATIVE (Negative); URINE PROTEIN (DIPSTICK) NEGATIVE (Negative); URINE SPECIFIC GRAVITY <= 1.005 (1.005-1.035)
[2017-09-23 14:45] LABS: ICTOTEST (BILI CONFIRMATORY) Positive (Negative)
[2017-09-23 14:50] LABS: AMP/METHAMP Negative (Negative); BARBITURATES Negative (Negative); BENZODIAZEPINES Negative (Negative); COCAINE Negative (Negative); METHADONE Negative (Negative); OPIATES Negative (Negative); PCP Negative (Negative)
[2017-09-23 16:23] VITALS: BP 119/75
[2017-09-23 20:00] VITALS: BP 146/99
[2017-09-24] VITALS (8 sets, daily range): BP systolic 80–125; BP diastolic 52–88
[2017-09-24 05:35] LABS: HEMATOCRIT 42.1 % (42.0-52.0); HEMOGLOBIN 14.4 gm/dL (14.0-18.0); MCH 34.3 pg (26.0-34.0); MCHC 34.3 g/dL (28.0-37.0); MCV 99.9 fL (80.0-100.0); RBC 4.21 mil/uL (4.50-6.00); RDW 15.9 % (10.5-14.5); WBC 3.9 thou/uL (4.0-11.0)
[2017-09-24 05:48] LABS: CALCIUM 8.1 mg/dL (8.5-10.1)
[2017-09-24 05:52] LABS: POTASSIUM 4.3 mmol/L (3.5-5.1)
[2017-09-24 06:04] LABS: ALBUMIN 2.8 g/dL (3.4-5.0); DIRECT BILIRUBIN 1.3 mg/dL (<0.1-0.3); TOTAL BILIRUBIN 2.1 mg/dL (<0.1-1.0); TOTAL PROTEIN 5.7 g/dL (6.4-8.2)
[2017-09-25 00:07] VITALS: BP 90/60
[2017-09-25 04:00] VITALS: BP 112/59
[2017-09-25 08:10] VITALS: BP 102/64
[2017-09-25 08:42] LABS: MCHC 33.5 g/dL (28.0-37.0); MCV 100.7 fL (80.0-100.0)
[2017-09-25 08:43] LABS: HEMOGLOBIN 13.7 gm/dL (14.0-18.0); MCH 33.8 pg (26.0-34.0); RBC 4.07 mil/uL (4.50-6.00); WBC 2.6 thou/uL (4.0-11.0)
[2017-09-25 09:02] LABS: ALBUMIN 2.5 g/dL (3.4-5.0); CALCIUM 7.6 mg/dL (8.5-10.1); CREATININE 1.2 mg/dL (0.7-1.3); MAGNESIUM 1.2 mg/dL (1.8-2.4); TOTAL BILIRUBIN 1.9 mg/dL (<0.1-1.0); TOTAL PROTEIN 5.4 g/dL (6.4-8.2)
[2017-09-25 12:20] VITALS: BP 119/77
[2017-09-25 13:50] LABS: INR 1.2; PROTIME 11.8 Seconds (9.3-11.4)
[2017-09-25 13:51] LABS: APTT 26.8 Seconds (24.5-32.8); D-DIMER 1.95 ug/mLFEU (0.19-0.50); FIBRINOGEN 300.2 mg/dL (210-360)
[2017-09-25 16:30] VITALS: BP 108/64
[2017-09-25 19:21] VITALS: BP 103/64
[2017-09-26 04:10] VITALS: BP 144/69
[2017-09-26 06:42] LABS: HEMOGLOBIN 15.1 gm/dL (14.0-18.0); RDW 15.6 % (10.5-14.5)
[2017-09-26 06:45] LABS: ABSOLUTE RETIC COUNT 0.0369 10^6/uL; HEMATOCRIT 43.5 % (42.0-52.0); MCH 34.6 pg (26.0-34.0); MCHC 34.6 g/dL (28.0-37.0); MCV 99.9 fL (80.0-100.0); OBSERVED RETIC COUNT 0.85 % (0.6-2.6); RBC 4.36 mil/uL (4.50-6.00); WBC 2.9 thou/uL (4.0-11.0)
[2017-09-26 07:07] VITALS: BP 136/83
[2017-09-26 08:02] LABS: FOLIC ACID > 40.0 ng/mL (8.6-58.9)
[2017-09-26 10:17] LABS: ABSOLUTE NEUTROPHILS 2.3 thou/uL (1.4-8.2)
[2017-09-26 10:19] LABS: PLATELET COUNT 11 thou/uL (150-400)
[2017-09-26 11:37] VITALS: BP 113/73
[2017-09-26 16:18] VITALS: BP 132/90
[2017-09-26 18:55] VITALS: BP 112/75
[2017-09-27] VITALS (7 sets, daily range): BP systolic 108–147; BP diastolic 61–97
[2017-09-27 06:06] LABS: HEMATOCRIT 44.9 % (42.0-52.0); HEMOGLOBIN 15.4 gm/dL (14.0-18.0); MCH 34.1 pg (26.0-34.0); MCHC 34.2 g/dL (28.0-37.0); MCV 99.7 fL (80.0-100.0); RBC 4.51 mil/uL (4.50-6.00); RDW 16.4 % (10.5-14.5); WBC 3.8 thou/uL (4.0-11.0)
[2017-09-27 06:17] LABS: CALCIUM 7.9 mg/dL (8.5-10.1); CREATININE 0.9 mg/dL (0.7-1.3)
[2017-09-28 04:45] VITALS: BP 121/82
[2017-09-28 06:04] LABS: MCH 34.2 pg (26.0-34.0); MCV 100.5 fL (80.0-100.0)
[2017-09-28 06:06] LABS: HEMATOCRIT 40.1 % (42.0-52.0); HEMOGLOBIN 13.6 gm/dL (14.0-18.0); RBC 3.99 mil/uL (4.50-6.00); RDW 16.2 % (10.5-14.5); WBC 3.5 thou/uL (4.0-11.0)
[2017-09-28 06:16] LABS: CALCIUM 7.7 mg/dL (8.5-10.1); CREATININE 0.9 mg/dL (0.7-1.3); MAGNESIUM 1.3 mg/dL (1.8-2.4); POTASSIUM 3.5 mmol/L (3.5-5.1)
[2017-09-28 07:33] VITALS: BP 127/84
[2017-09-28 11:28] VITALS: BP 116/82
[2017-09-28 15:27] VITALS: BP 132/94
[2017-09-28 19:15] VITALS: BP 120/80
[2017-09-29 04:32] VITALS: BP 133/90
[2017-09-29 05:49] LABS: HEMATOCRIT 43.8 % (42.0-52.0); HEMOGLOBIN 15.2 gm/dL (14.0-18.0); MCH 34.6 pg (26.0-34.0); MCHC 34.7 g/dL (28.0-37.0); MCV 99.9 fL (80.0-100.0); RBC 4.39 mil/uL (4.50-6.00); RDW 16.1 % (10.5-14.5); WBC 3.9 thou/uL (4.0-11.0)
[2017-09-29 05:58] LABS: CALCIUM 8.4 mg/dL (8.5-10.1); CREATININE 0.9 mg/dL (0.7-1.3); MAGNESIUM 1.1 mg/dL (1.8-2.4); POTASSIUM 3.4 mmol/L (3.5-5.1)
[2017-09-29 07:33] VITALS: BP 137/91
[2017-09-29 11:10] VITALS: BP 129/88
[2017-09-29 15:53] VITALS: BP 135/95
[2017-09-29 16:10] VITALS: BP 133/86
[2017-09-29 20:00] VITALS: BP 142/77
[2017-09-29 20:55] LABS: MCH 34.3 pg (26.0-34.0); RDW 16.3 % (10.5-14.5)
[2017-09-29 20:56] LABS: HEMATOCRIT 39.2 % (42.0-52.0); HEMOGLOBIN 13.3 gm/dL (14.0-18.0); MCV 100.8 fL (80.0-100.0); RBC 3.89 mil/uL (4.50-6.00); WBC 2.5 thou/uL (4.0-11.0)
[2017-09-30 04:00] VITALS: BP 149/91
[2017-09-30 04:18] LABS: CALCIUM 8.3 mg/dL (8.5-10.1); CREATININE 0.9 mg/dL (0.7-1.3); POTASSIUM 3.1 mmol/L (3.5-5.1)
[2017-09-30 04:22] LABS: HEMATOCRIT 39.9 % (42.0-52.0); HEMOGLOBIN 13.6 gm/dL (14.0-18.0); MCH 34.1 pg (26.0-34.0); MCV 100.3 fL (80.0-100.0); RBC 3.98 mil/uL (4.50-6.00); RDW 16.3 % (10.5-14.5); WBC 2.2 thou/uL (4.0-11.0)
[2017-09-30 04:25] LABS: MAGNESIUM 0.9 mg/dL (1.8-2.4)
[2017-09-30 07:56] VITALS: BP 133/98
[2017-09-30 13:45] LABS: ALBUMIN 2.3 g/dL (3.4-5.0); DIRECT BILIRUBIN 1.1 mg/dL (<0.1-0.3); TOTAL BILIRUBIN 1.9 mg/dL (<0.1-1.0); TOTAL PROTEIN 7.7 g/dL (6.4-8.2)
[2017-09-30 17:32] VITALS: BP 140/91
[2017-09-30 19:22] VITALS: BP 99/65
[2017-10-01 03:56] VITALS: BP 126/80
[2017-10-01 08:36] VITALS: BP 136/92
[2017-10-01 09:51] LABS: HEMOGLOBIN 15.3 gm/dL (14.0-18.0); MCH 34.5 pg (26.0-34.0); RBC 4.43 mil/uL (4.50-6.00)
[2017-10-01 09:53] LABS: HEMATOCRIT 44.6 % (42.0-52.0); MCHC 34.3 g/dL (28.0-37.0); MCV 100.6 fL (80.0-100.0); PLATELET COUNT 45 thou/uL (150-400); RDW 16.6 % (10.5-14.5)
[2017-10-01 09:54] LABS: WBC 1.9 thou/uL (4.0-11.0)
[2017-10-01 10:23] LABS: ABSOLUTE NEUTROPHILS 1.1 thou/uL (1.4-8.2)
[2017-10-01 10:24] LABS: ANISOCYTOSIS SLIGHT
[2017-10-01 11:51] VITALS: BP 101/63
[2017-10-01 15:43] VITALS: BP 95/59
[2017-10-01 19:55] VITALS: BP 110/74
[2017-10-02 04:53] VITALS: BP 122/80
[2017-10-02 05:18] LABS: CALCIUM 8.8 mg/dL (8.5-10.1); POTASSIUM 3.1 mmol/L (3.5-5.1)
[2017-10-02 05:28] LABS: HEMATOCRIT 38.7 % (42.0-52.0); MCH 34.1 pg (26.0-34.0); MCHC 34.3 g/dL (28.0-37.0); MCV 99.5 fL (80.0-100.0); RBC 3.89 mil/uL (4.50-6.00); RDW 16.3 % (10.5-14.5)
[2017-10-02 05:34] LABS: HEMOGLOBIN 13.3 gm/dL (14.0-18.0); WBC 1.5 thou/uL (4.0-11.0)
[2017-10-02 07:59] VITALS: BP 126/86
[2017-10-02 12:00] VITALS: BP 135/87
[2017-10-02 17:21] VITALS: BP 132/89
[2017-10-02 19:08] VITALS: BP 114/72
[2017-10-03 03:09] VITALS: BP 146/76
[2017-10-03 06:26] LABS: HEMATOCRIT 41.6 % (42.0-52.0); HEMOGLOBIN 14.1 gm/dL (14.0-18.0); MCH 33.8 pg (26.0-34.0); MCHC 33.9 g/dL (28.0-37.0); MCV 99.7 fL (80.0-100.0); RBC 4.17 mil/uL (4.50-6.00); RDW 16.1 % (10.5-14.5); WBC 2.2 thou/uL (4.0-11.0)
[2017-10-03 06:42] LABS: CALCIUM 8.7 mg/dL (8.5-10.1); CREATININE 1.1 mg/dL (0.7-1.3); POTASSIUM 3.3 mmol/L (3.5-5.1)
[2017-10-03 08:21] VITALS: BP 131/92
[2017-10-03] MEDS ORDERED: CATAPRES-TTS 20.2 MG TRANSDERM (13:59)
[2017-10-03] MEDS ORDERED: VITAMIN B-1100 M2 PO (14:00)
[2017-10-03 14:39] VITALS: BP 133/97
[2017-10-03 15:00] VITALS: BP 133/97
== END 2017-10-03 16:48 | disposition home health service (06) | DRG 432 ==
LOC: ER 12:14 → EROBS 14:09 → 3W 14:09 → ENTRNSPT 10-03 15:39 → EDTRNSPTSTS 10-03 15:41 → 3W 10-03 16:48
PROVIDERS: Hospitalist; Internal Medicine; Internal Medicine Hematology & Oncology; Nurse Practitioner; Physician Assistant; Registered Nurse
DX: K70.30 Alcoholic cirrhosis of liver without ascites (principal); G93.40 Encephalopathy, unspecified; E43 Unspecified severe protein-calorie malnutrition; F10.129 Alcohol abuse with intoxication, unspecified; E11.9 Type 2 diabetes mellitus without complications; E03.9 Hypothyroidism, unspecified; I10 Essential (primary) hypertension; K21.9 Gastro-esophageal reflux disease without esophagitis; J44.9 Chronic obstructive pulmonary disease, unspecified; I48.91 Unspecified atrial fibrillation; E78.5 Hyperlipidemia, unspecified; F39 Unspecified mood [affective] disorder; E83.42 Hypomagnesemia; D69.6 Thrombocytopenia, unspecified; Z66 Do not resuscitate; R41.0 Disorientation, unspecified; R74.0 Nonspecific elevation of levels of transaminase and lactic acid dehydrogenase [LDH]; Z79.899 Other long term (current) drug therapy; Z87.442 Personal history of urinary calculi; Z85.46 Personal history of malignant neoplasm of prostate; Z87.891 Personal history of nicotine dependence; Z88.1 Allergy status to other antibiotic agents; Z79.4 Long term (current) use of insulin; Z68.22 Body mass index [BMI] 22.0-22.9, adult
CPT/HCPCS: 10879

== ENCOUNTER 2017-11-10 16:50 | Inpatient (IN) | payer OTHER ==
[~2017-11-10] VITALS: Ht 182.9 cm; Wt 79.0 kg
--- NOTE | ~2017-11-10 | HC ---
[facility] [place] [place] [address] CONSULTATION Name: FATEMEH ARANA Room #: 353-P ADM IN M.R.#: [id number] Admission: 11/10/17 Attend Phys: Rudi Raza MD Discharge: Date of : 37 Report #: [id number] THIS REPORT FOR: //name// CC: TALA physician/PCP Rudi Raza DATE OF SERVICE: 11/13/2017 HISTORY OF PRESENT ILLNESS: We are asked to see this gentleman with respect to altered mental status. He is well known to our service because of the past evaluations with respect to possibility of dementia, but perhaps more commonly delirium, alcohol use disorder and mood disorder. The patient was hospitalized here recently, but has presented with an acute change in mental status at least in part related to gastrointestinal infection with C. diff, but there perhaps also has been recent impact of alcohol intoxication and now subsequently withdrawal too. The patient was somnolent, would barely open his eyes and responded with slurred speech. PAST PSYCHIATRIC HISTORY: Gentleman is known to our service and we have seen him in the past. I believe Dr. Mohan was involved with his care last month during the hospital stay in which we saw improvement in alertness, but did not quite returned to a level of appropriateness for decision making capacity. This has been going on for some time. His has functioned as a healthcare power of research attorney in the past. PAST MEDICAL HISTORY: Sakudkx-Ifbby-Pnwmj, cirrhosis, history of alcohol use disorder, also Clostridium difficile, COPD, hearing impairment, leg weakness, dysequilibrium. FAMILY HISTORY: Tkgfdbs-Eqxoc-Grukf. SOCIAL HISTORY: I believe he has a degree in mathematics or science. His baseline level of intelligence has been quite high. This is somewhat allowed him to compensate for increasing cognitive difficulties. Suffers from alcohol use disorder. His was a healthcare power of research attorney. I believe they actually may be now. She no longer lives with them. COGNITIVE EXAMINATION: Unable to perform. The patient is somnolent and not alert. MENTAL STATUS EXAMINATION: male, somnolent, slurred speech. No suicidal or homicidal ideations verbalized. Insight and judgment impaired. DIAGNOSES: Delirium; mood disorder, not otherwise specified; alcohol use disorder; rule out dementia. [facility] [address] [place] [address] CONSULTATION Name: FATEMEH ARANA Room #: 353-P [facility] IN ..#: [id number] Admission: 11/10/17 Attend Phys: Rudi Raza MD Discharge: Date of : 37 Report #: [id number] RECOMMENDATIONS: The patient has been through a number of bouts of delirium and acute confusional state, now related in part to alcohol use disorder or other medical ailments. Unfortunately, it seems that he is typically return to a lower baseline mental status. At this time, I agree with using Haldol and Ativan as far as his detox needs with perhaps more emphasis on the Ativan as long as he tolerates it from a respiratory standpoint. With respect to his hepatic status and Depakote, I agree maybe better defined other options for agitation especially given the thrombocytopenia, but gabapentin could be a good agent for mood that also has been helpful with alcohol craving. By: [id number] Jason Roa MD /nt
--- NOTE | ~2017-11-10 | PATH ---
[facility] [address] [place] [address] PATHOLOGY RPT PROCEDURE Name: FATEMEH ARANA Room #: 204-P [facility] IN ..#: [id number] Admission: 11/10/17 Date of : 37 Discharge: 11/22/17 Report #: [id number] Path Case #: [id number] Note [facility] Accession Number: [id number] TESTS RESULT FLAG UNITS REF RANGE LAB Clinician Provided Cytology Information No. of containers..01 Other (Miscellaneous) Source: LT PLEURAL FLUID DIAGNOSIS: LT PLEURAL FLUID NEGATIVE FOR MALIGNANT CELLS. THIS INTERPRETATION INCLUDES EVALUATION OF A CELL BLOCK. SCANT CELLULARITY. Signed out by: 02 Promise Saldivar MD, Pathologist NPI- [id number] Performed by: 03 Alpa Bro, Filter Plant Supervisor ([facility]) Gross description: 01 17ML, YELLOW, CLOUDY /LCS FLAG LEGEND: L-Low Normal,H-High Normal,LL-Alert Low,HH-Alert High <-Panic Low,>-Panic High,A-Abnormal,AA-Critical Abnormal Performed at: [address] [place] [address] Sandro Roldan MD, [address] [address] Leigh Ann Michael MD, [address] [address] Johnnie De Los Santos MD, A duplicate report has been generated due to demographic updates. Performed at: [address], [place], [place] [id number] MD Sandro Roldan MD Phone: [phone]
--- NOTE | ~2017-11-10 | EKG ---
[address] [address] ELECTROCARDIOGRAM REPORT Name: FATEMEH ARANA Room #: 170-4 ADM IN M.R.#: [id number] Admission: 11/10/17 Attend Phys: Rudi Raza MD Discharge: Date of : 37 Report #: [id number] THIS REPORT FOR: //name// [facility] ED Test Date: 2017-11-10 Test Time: 17:19:10 Pat Name: FATEMEH ARANA Department: Room: Gender: M Terminal Clerk: RUSSELL : 1935 Requested By: Marleen Manzano Order Number: [id number] MD: Lenny Rodriguez Measurements Intervals [place] Rate: 149 P: [place]: QRS: -54 QRSD: 53 T: 57 QT: 352 QTc: 554 Interpretive Statements Atrial fibrillation with rapid V-rate Compared to ECG 09/23/2017 12:52:38 Poor R-wave progression no longer present ST (T wave) deviation no longer present Electronically Signed On 11-10-2017 19:36:32 CDT by Lenny Rodriguez [email or web address] <ELECTRONICALLY SIGNED> By: Lenny Rodriguez MD 11/10/17 1935 18 18 Lneny Rodriguez MD /EPI
[~2017-11-10 16:50] MED LIST changes: +CATAPRES-TTS 20.2 MG TRANSDERM; +VITAMIN B-1100 M2 PO
[2017-11-10 16:57] VITALS: BP 114/87
[2017-11-10 17:24] LABS: ABSOLUTE NEUTROPHILS 4.2 thou/uL (1.4-8.2); BASOPHILS 1.6 % (0.0-2.0); EOSINOPHILS 0.7 % (0.0-3.0); HEMATOCRIT 43.7 % (42.0-52.0); HEMOGLOBIN 14.7 gm/dL (14.0-18.0); LYMPHOCYTES 14.3 % (24.0-44.0); MCHC 33.6 g/dL (28.0-37.0); MCV 101.2 fL (80.0-100.0); MONOCYTES 7.4 % (1.0-8.0); PLATELET COUNT 62 thou/uL (150-400); RBC 4.32 mil/uL (4.50-6.00); RDW 17.3 % (10.5-14.5); WBC 5.5 thou/uL (4.0-11.0)
[2017-11-10 17:28] LABS: ANION GAP 7 mmol/L (7-16); BUN 13 mg/dL (7-18); CALCIUM 8.9 mg/dL (8.5-10.1); CHLORIDE 103 mmol/L (98-107); CO2 29 mmol/L (21-32); CREATININE 1.1 mg/dL (0.7-1.3); GLUCOSE 121 mg/dL (74-106); POTASSIUM 4.8 mmol/L (3.5-5.1); SODIUM 139 mmol/L (136-145)
[2017-11-10 17:34] LABS: INR 1.2; PROTIME 12.4 Seconds (9.3-11.4)
[2017-11-10 17:37] LABS: SGOT 60 U/L (15-37); SGPT 31 U/L (30-65); TOTAL PROTEIN 6.8 g/dL (6.4-8.2); TROPONIN-I < 0.04 ng/mL (<0.06)
[2017-11-10 18:01] LABS: ANISOCYTOSIS 1+
[2017-11-10 19:32] LABS: URINE BLOOD NEGATIVE (Negative); URINE CLARITY CLEAR; URINE COLOR YELLOW; URINE GLUCOSE-RANDOM* NEGATIVE (Negative); URINE KETONES NEGATIVE (Negative); URINE LEUKOCYTES-REFLEX NEGATIVE (Negative); URINE NITRITE-REFLEX NEGATIVE (Negative); URINE PROTEIN (DIPSTICK) NEGATIVE (Negative)
[2017-11-10 19:36] LABS: ICTOTEST (BILI CONFIRMATORY) Negative (Negative); URINE BILIRUBIN NEGATIVE (Negative)
[2017-11-10 22:41] VITALS: BP 109/76
[2017-11-10 22:50] VITALS: BP 107/74
[2017-11-10 23:55] VITALS: BP 100/66
[2017-11-11] VITALS (10 sets, daily range): BP systolic 82–1106; BP diastolic 54–87
[2017-11-11 05:38] LABS: HEMATOCRIT 39.1 % (42.0-52.0); HEMOGLOBIN 13.3 gm/dL (14.0-18.0); MCH 34.3 pg (26.0-34.0); MCHC 33.9 g/dL (28.0-37.0); MCV 100.9 fL (80.0-100.0); RBC 3.87 mil/uL (4.50-6.00); RDW 17.5 % (10.5-14.5); WBC 4.5 thou/uL (4.0-11.0)
[2017-11-11 05:48] LABS: CALCIUM 7.7 mg/dL (8.5-10.1); CREATININE 0.9 mg/dL (0.7-1.3)
[2017-11-11 06:02] LABS: POTASSIUM 3.6 mmol/L (3.5-5.1)
[2017-11-11 06:31] LABS: TSH 6.306 uIU/mL (0.358-3.740)
[2017-11-12 03:25] VITALS: BP 90/65
[2017-11-12 05:25] LABS: ABSOLUTE NEUTROPHILS 4.2 thou/uL (1.4-8.2); BASOPHILS 0.8 % (0.0-2.0); EOSINOPHILS 0.5 % (0.0-3.0); HEMATOCRIT 39.2 % (42.0-52.0); HEMOGLOBIN 13.1 gm/dL (14.0-18.0); MCH 34.3 pg (26.0-34.0); MCHC 33.3 g/dL (28.0-37.0); MCV 102.9 fL (80.0-100.0); MONOCYTES 7.6 % (1.0-8.0); PLATELET COUNT 51 thou/uL (150-400); POLYS 80.1 % (36.0-66.0); RBC 3.81 mil/uL (4.50-6.00); RDW 17.5 % (10.5-14.5); WBC 5.3 thou/uL (4.0-11.0)
[2017-11-12 05:32] LABS: ALBUMIN 2.4 g/dL (3.4-5.0); CALCIUM 7.6 mg/dL (8.5-10.1); CREATININE 1.2 mg/dL (0.7-1.3); MAGNESIUM 2.3 mg/dL (1.8-2.4); POTASSIUM 3.9 mmol/L (3.5-5.1); TOTAL BILIRUBIN 1.3 mg/dL (<0.1-1.0); TOTAL PROTEIN 5.4 g/dL (6.4-8.2)
[2017-11-12 07:23] VITALS: BP 99/70
[2017-11-12 11:45] VITALS: BP 129/86
[2017-11-12 16:57] VITALS: BP 92/64
[2017-11-12 19:07] VITALS: BP 112/72
[2017-11-13 04:45] VITALS: BP 103/66
[2017-11-13 05:56] LABS: ABSOLUTE NEUTROPHILS 5.4 thou/uL (1.4-8.2); BASOPHILS 0.7 % (0.0-2.0); EOSINOPHILS 1.5 % (0.0-3.0); HEMATOCRIT 39.5 % (42.0-52.0); HEMOGLOBIN 13.2 gm/dL (14.0-18.0); LYMPHOCYTES 9.8 % (24.0-44.0); MCH 34.5 pg (26.0-34.0); MCHC 33.4 g/dL (28.0-37.0); MCV 103.2 fL (80.0-100.0); MONOCYTES 8.4 % (1.0-8.0); POLYS 79.6 % (36.0-66.0); RBC 3.82 mil/uL (4.50-6.00); RDW 17.4 % (10.5-14.5); WBC 6.7 thou/uL (4.0-11.0)
[2017-11-13 06:13] LABS: ALBUMIN 2.5 g/dL (3.4-5.0); CALCIUM 7.7 mg/dL (8.5-10.1); CREATININE 1.1 mg/dL (0.7-1.3); POTASSIUM 3.8 mmol/L (3.5-5.1); TOTAL BILIRUBIN 1.2 mg/dL (<0.1-1.0); TOTAL PROTEIN 5.6 g/dL (6.4-8.2)
[2017-11-13 06:54] VITALS: BP 106/74
[2017-11-13 09:00] LABS: ANISOCYTOSIS 1+; MACROCYTES 1+; PLATELET COUNT 50 thou/uL (150-400); PLATELET ESTIMATE DECREASED; POLYCHROMASIA SLIGHT
[2017-11-13 11:44] VITALS: BP 113/89
[2017-11-13 16:27] VITALS: BP 157/136
[2017-11-13 20:11] VITALS: BP 130/84
[2017-11-13 23:44] VITALS: BP 120/82
[2017-11-14 04:32] VITALS: BP 101/67
[2017-11-14 06:37] LABS: HEMOGLOBIN 14.7 gm/dL (14.0-18.0); MONOCYTES 9.5 % (1.0-8.0); RBC 4.22 mil/uL (4.50-6.00)
[2017-11-14 06:38] LABS: ABSOLUTE NEUTROPHILS 4.6 thou/uL (1.4-8.2); EOSINOPHILS 1.7 % (0.0-3.0); HEMATOCRIT 43.9 % (42.0-52.0); LYMPHOCYTES 8.9 % (24.0-44.0); MCH 34.9 pg (26.0-34.0); MCHC 33.5 g/dL (28.0-37.0); POLYS 78.9 % (36.0-66.0); RDW 18.4 % (10.5-14.5); WBC 5.8 thou/uL (4.0-11.0)
[2017-11-14 06:51] LABS: ALBUMIN 2.4 g/dL (3.4-5.0); CALCIUM 7.9 mg/dL (8.5-10.1); CREATININE 1.1 mg/dL (0.7-1.3); POTASSIUM 3.7 mmol/L (3.5-5.1); TOTAL BILIRUBIN 1.2 mg/dL (<0.1-1.0); TOTAL PROTEIN 5.9 g/dL (6.4-8.2)
[2017-11-14 07:30] VITALS: BP 107/79
[2017-11-14 08:33] LABS: ANISOCYTOSIS 1+; PLATELET COUNT 39 thou/uL (150-400); PLATELET ESTIMATE DECREASED
[2017-11-14 08:34] LABS: MACROCYTES 1+
[2017-11-14 12:25] VITALS: BP 116/79
[2017-11-14 15:46] VITALS: BP 110/70
[2017-11-14 20:15] VITALS: BP 108/72
[2017-11-14 23:35] VITALS: BP 130/73
[2017-11-15 04:00] VITALS: BP 107/68
[2017-11-15 05:41] LABS: HEMOGLOBIN 13.6 gm/dL (14.0-18.0)
[2017-11-15 05:42] LABS: ABSOLUTE NEUTROPHILS 3.8 thou/uL (1.4-8.2); BASOPHILS 0.9 % (0.0-2.0); EOSINOPHILS 1.6 % (0.0-3.0); HEMATOCRIT 40.5 % (42.0-52.0); LYMPHOCYTES 8.4 % (24.0-44.0); MCHC 33.7 g/dL (28.0-37.0); MCV 103.9 fL (80.0-100.0); MONOCYTES 9.8 % (1.0-8.0); PLATELET COUNT 35 thou/uL (150-400); POLYS 79.3 % (36.0-66.0); RDW 17.9 % (10.5-14.5); WBC 4.7 thou/uL (4.0-11.0)
[2017-11-15 05:46] LABS: CALCIUM 7.8 mg/dL (8.5-10.1); CREATININE 0.9 mg/dL (0.7-1.3); POTASSIUM 3.4 mmol/L (3.5-5.1)
[2017-11-15 08:00] VITALS: BP 102/67
[2017-11-15 12:00] VITALS: BP 96/68
[2017-11-15 16:00] VITALS: BP 102/66
[2017-11-15 19:40] VITALS: BP 100/67
[2017-11-16 04:30] VITALS: BP 99/71
[2017-11-16 07:20] VITALS: BP 112/71
[2017-11-16 20:15] VITALS: BP 97/61
[2017-11-17 04:13] VITALS: BP 119/77
[2017-11-17 05:55] LABS: RDW 17.9 % (10.5-14.5)
[2017-11-17 05:57] LABS: HEMATOCRIT 41.5 % (42.0-52.0); MCH 35.2 pg (26.0-34.0); MCHC 33.7 g/dL (28.0-37.0); MCV 104.5 fL (80.0-100.0); RBC 3.97 mil/uL (4.50-6.00); WBC 4.2 thou/uL (4.0-11.0)
[2017-11-17 06:16] LABS: ALBUMIN 2.1 g/dL (3.4-5.0); CALCIUM 8.1 mg/dL (8.5-10.1); PHOSPHORUS 3.2 mg/dL (2.5-4.9); POTASSIUM 3.8 mmol/L (3.5-5.1)
[2017-11-17 07:53] VITALS: BP 127/88
[2017-11-17 11:35] VITALS: BP 102/63
[2017-11-17 16:01] VITALS: BP 96/58
[2017-11-17 20:33] VITALS: BP 129/83
[2017-11-18 04:27] VITALS: BP 127/80
[2017-11-18 05:58] LABS: HEMOGLOBIN 14.5 gm/dL (14.0-18.0); WBC 3.9 thou/uL (4.0-11.0)
[2017-11-18 06:00] LABS: MCH 34.8 pg (26.0-34.0); MCHC 33.7 g/dL (28.0-37.0); MCV 103.3 fL (80.0-100.0); RBC 4.16 mil/uL (4.50-6.00); RDW 17.3 % (10.5-14.5)
[2017-11-18 06:08] LABS: ALBUMIN 2.1 g/dL (3.4-5.0); CALCIUM 8.3 mg/dL (8.5-10.1); CREATININE 0.8 mg/dL (0.7-1.3); POTASSIUM 3.6 mmol/L (3.5-5.1); TOTAL BILIRUBIN 0.8 mg/dL (<0.1-1.0); TOTAL PROTEIN 5.6 g/dL (6.4-8.2)
[2017-11-18 07:55] VITALS: BP 128/92
[2017-11-18 11:32] VITALS: BP 127/79
[2017-11-18 13:41] VITALS: BP 105/57; BP 130/85
[2017-11-18 17:00] VITALS: BP 132/94
[2017-11-18 17:43] LABS: HEMOGLOBIN 14.5 gm/dL (14.0-18.0); MCH 34.6 pg (26.0-34.0); MCHC 33.7 g/dL (28.0-37.0); MCV 102.7 fL (80.0-100.0); RBC 4.19 mil/uL (4.50-6.00); RDW 17.4 % (10.5-14.5); WBC 5.4 thou/uL (4.0-11.0)
[2017-11-18 21:26] VITALS: BP 132/87
[2017-11-19] VITALS (7 sets, daily range): BP systolic 105–145; BP diastolic 51–92
[2017-11-19 04:51] LABS: CALCIUM 8.3 mg/dL (8.5-10.1); CREATININE 0.9 mg/dL (0.7-1.3); POTASSIUM 3.2 mmol/L (3.5-5.1)
[2017-11-19 05:04] LABS: HEMOGLOBIN 13.4 gm/dL (14.0-18.0); MCH 34.5 pg (26.0-34.0); MCHC 33.4 g/dL (28.0-37.0); MCV 103.4 fL (80.0-100.0); RBC 3.87 mil/uL (4.50-6.00); RDW 17.1 % (10.5-14.5); WBC 3.7 thou/uL (4.0-11.0)
[2017-11-19 11:22] LABS: CLARITY CLEAR; COLOR YELLOW; SOURCE THORACENTESIS; TOTAL VOLUME 60 mL
[2017-11-19 11:55] LABS: BF NUCLEATED CELLS 160; BF RBC 123
[2017-11-19 14:23] LABS: BF NEUTROPHILS 12
[2017-11-20] VITALS (10 sets, daily range): BP systolic 93–144; BP diastolic 58–96
[2017-11-20 06:33] LABS: HEMATOCRIT 43.1 % (42.0-52.0); HEMOGLOBIN 14.5 gm/dL (14.0-18.0); MCH 34.2 pg (26.0-34.0); MCHC 33.6 g/dL (28.0-37.0); MCV 101.7 fL (80.0-100.0); RBC 4.23 mil/uL (4.50-6.00); RDW 16.7 % (10.5-14.5); WBC 4.4 thou/uL (4.0-11.0)
[2017-11-20 06:40] LABS: CALCIUM 8.5 mg/dL (8.5-10.1); CREATININE 0.7 mg/dL (0.7-1.3); POTASSIUM 3.3 mmol/L (3.5-5.1)
[2017-11-20 09:03] LABS: SOURCE THORACENTESIS
[2017-11-20 13:13] LABS: BODY FLUID ALBUMIN 0.6 g/dL (()); BODY FLUID AMYLASE 16 U/L (()); BODY FLUID GLUCOSE 92 mg/dL (()); BODY FLUID LDH 40 IU/L (()); BODY FLUID PROTEIN 0.7 g/dL (())
[2017-11-20 16:01] LABS: TSH 8.314 uIU/mL (0.358-3.740)
[2017-11-21 03:36] VITALS: BP 126/79
[2017-11-21 03:43] LABS: HEMOGLOBIN 14.9 gm/dL (14.0-18.0); MCH 34.7 pg (26.0-34.0); MCHC 34.7 g/dL (28.0-37.0); MCV 100.1 fL (80.0-100.0); RBC 4.3 mil/uL (4.50-6.00); RDW 16.3 % (10.5-14.5); WBC 5.1 thou/uL (4.0-11.0)
[2017-11-21 03:58] LABS: ALBUMIN 2.3 g/dL (3.4-5.0); CALCIUM 8.3 mg/dL (8.5-10.1); CREATININE 0.9 mg/dL (0.7-1.3); POTASSIUM 3.7 mmol/L (3.5-5.1); TOTAL BILIRUBIN 1.2 mg/dL (<0.1-1.0); TOTAL PROTEIN 5.9 g/dL (6.4-8.2)
[2017-11-21 07:29] VITALS: BP 129/94
[2017-11-21 11:53] VITALS: BP 116/83
[2017-11-21 15:59] VITALS: BP 114/75
[2017-11-21 19:23] VITALS: BP 95/59
[2017-11-22] VITALS (8 sets, daily range): BP systolic 119–131; BP diastolic 72–82
[2017-11-22 05:33] LABS: ABSOLUTE NEUTROPHILS 2.5 thou/uL (1.4-8.2)
[2017-11-22 05:35] LABS: BASOPHILS 3.1 % (0.0-2.0); EOSINOPHILS 2.5 % (0.0-3.0); HEMOGLOBIN 14.2 gm/dL (14.0-18.0); LYMPHOCYTES 15.1 % (24.0-44.0); MCH 34.8 pg (26.0-34.0); MCHC 34.7 g/dL (28.0-37.0); MCV 100.4 fL (80.0-100.0); MONOCYTES 9.3 % (1.0-8.0); PLATELET COUNT 48 thou/uL (150-400); RBC 4.08 mil/uL (4.50-6.00); RDW 16.1 % (10.5-14.5); WBC 3.5 thou/uL (4.0-11.0)
[2017-11-22 05:53] LABS: ALBUMIN 2.1 g/dL (3.4-5.0); CALCIUM 8.1 mg/dL (8.5-10.1); CREATININE 0.7 mg/dL (0.7-1.3); MAGNESIUM 1.4 mg/dL (1.8-2.4); POTASSIUM 3.4 mmol/L (3.5-5.1); TOTAL BILIRUBIN 1.1 mg/dL (<0.1-1.0); TOTAL PROTEIN 5.7 g/dL (6.4-8.2)
[2017-11-22] MEDS ORDERED: VANCOMYCIN HCL10 GM PO (14:54)
[2017-11-22] MEDS ORDERED: CARDIZEM CD240 MG PO (14:55)
[2017-11-22] MEDS ORDERED: NEURONTIN 300300 M1 PO (14:55)
== END 2017-11-22 17:13 | disposition home health service (06) | DRG 871 ==
LOC: ER 16:50 → EROBS 18:19 → 3W 18:19 → 2N 11-20 13:48
PROVIDERS: Hospitalist; Internal Medicine Geriatric Medicine; Internal Medicine Hematology & Oncology; Nurse Practitioner Family; Radiology Diagnostic Radiology
DX: A41.9 Sepsis, unspecified organism (principal); E43 Unspecified severe protein-calorie malnutrition; A04.72 Enterocolitis due to Clostridium difficile, not specified as recurrent; J93.9 Pneumothorax, unspecified; J90 Pleural effusion, not elsewhere classified; I48.1 Persistent atrial fibrillation; Z66 Do not resuscitate; E11.9 Type 2 diabetes mellitus without complications; E03.9 Hypothyroidism, unspecified; I10 Essential (primary) hypertension; F32.9 Major depressive disorder, single episode, unspecified; F41.9 Anxiety disorder, unspecified; E86.0 Dehydration; I25.10 Atherosclerotic heart disease of native coronary artery without angina pectoris; E78.5 Hyperlipidemia, unspecified; K70.30 Alcoholic cirrhosis of liver without ascites; D53.9 Nutritional anemia, unspecified; G60.0 Hereditary motor and sensory neuropathy; K21.9 Gastro-esophageal reflux disease without esophagitis; H91.90 Unspecified hearing loss, unspecified ear; E83.42 Hypomagnesemia; F10.10 Alcohol abuse, uncomplicated; F03.90 Unspecified dementia, unspecified severity, without behavioral disturbance, psychotic disturbance, mood disturbance, and anxiety; R91.1 Solitary pulmonary nodule; J43.9 Emphysema, unspecified; D69.6 Thrombocytopenia, unspecified; E87.6 Hypokalemia; R91.8 Other nonspecific abnormal finding of lung field; Z71.41 Alcohol abuse counseling and surveillance of alcoholic; Z85.46 Personal history of malignant neoplasm of prostate; Z68.23 Body mass index [BMI] 23.0-23.9, adult; Z87.442 Personal history of urinary calculi; Z85.820 Personal history of malignant melanoma of skin; Z87.891 Personal history of nicotine dependence; Z79.51 Long term (current) use of inhaled steroids; Z79.899 Other long term (current) drug therapy; Z88.1 Allergy status to other antibiotic agents
CPT/HCPCS: 10081; 10879

== ENCOUNTER 2017-11-23 15:11 | Inpatient (IN) | payer OTHER ==
[~2017-11-23] VITALS: Ht 177.8 cm; Wt 78.9 kg
--- NOTE | ~2017-11-23 | EKG ---
[address] [place] [place] [address] ELECTROCARDIOGRAM REPORT Name: FATEMEH ARANA Room #: 452-P ADM IN M.R.#: [id number] Admission: 11/23/17 Attend Phys: Carlo Cole MD Discharge: Date of : 37 Report #: [id number] THIS REPORT FOR: //name// [facility] ED Test Date: 2017-11-23 Test Time: 17:29:23 Pat Name: FATEMEH ARANA Department: Room: Gender: M Director Of Development: LATOYA : 1935 Requested By: Nohemy King Order Number: [id number] MD: Nicolas Patel Measurements Intervals [place] Rate: 106 P: [place]: QRS: -23 QRSD: 75 T: QT: 436 QTc: 580 Interpretive Statements Atrial fibrillation Inferior infarct, old Poor R wave progression Prolonged QT interval Compared to ECG 11/10/2017 17:19:10 Ventricular response has slowed Electronically Signed On 11-25-2017 16:53:28 CDT by Nicolas Patel [email or web address] <ELECTRONICALLY SIGNED> By: Nicolas Patel MD, [facility] 11/25/17 1653 1729 172 Nicolas Patel MD, [facility] /EPI
[~2017-11-23 15:11] MED LIST changes: +CARDIZEM CD240 MG PO; +VANCOMYCIN HCL10 GM PO
[2017-11-23 15:12] VITALS: BP 124/89
[2017-11-23 16:32] LABS: ABSOLUTE NEUTROPHILS 4.5 thou/uL (1.4-8.2); EOSINOPHILS 1.4 % (0.0-3.0); HEMATOCRIT 43.4 % (42.0-52.0); HEMOGLOBIN 15.2 gm/dL (14.0-18.0); LYMPHOCYTES 7.9 % (24.0-44.0); MCH 34.8 pg (26.0-34.0); MCHC 35.1 g/dL (28.0-37.0); MCV 99.4 fL (80.0-100.0); POLYS 79.7 % (36.0-66.0); RBC 4.36 mil/uL (4.50-6.00); RDW 16.2 % (10.5-14.5); WBC 5.7 thou/uL (4.0-11.0)
[2017-11-23 16:33] LABS: PLATELET COUNT 58 thou/uL (150-400)
[2017-11-23 16:41] LABS: CALCIUM 8.9 mg/dL (8.5-10.1); CREATININE 0.9 mg/dL (0.7-1.3); POTASSIUM 3.8 mmol/L (3.5-5.1)
[2017-11-23 16:47] LABS: ALBUMIN 2.6 g/dL (3.4-5.0); DIRECT BILIRUBIN 0.8 mg/dL (<0.1-0.3); TOTAL BILIRUBIN 1.4 mg/dL (<0.1-1.0); TOTAL PROTEIN 6.6 g/dL (6.4-8.2)
[2017-11-23 17:36] VITALS: BP 135/75
[2017-11-23 17:36] LABS: URINE BILIRUBIN NEGATIVE (Negative); URINE BLOOD NEGATIVE (Negative); URINE CLARITY CLEAR; URINE COLOR YELLOW; URINE GLUCOSE-RANDOM* NEGATIVE (Negative); URINE KETONES NEGATIVE (Negative); URINE LEUKOCYTES NEGATIVE (Negative); URINE NITRITE NEGATIVE (Negative); URINE PROTEIN (DIPSTICK) NEGATIVE (Negative); URINE UROBILINOGEN 0.2 E.U./dl (0.2-1.0)
[2017-11-23 18:18] VITALS: BP 132/74
[2017-11-23 19:33] VITALS: BP 152/89
[2017-11-24 00:17] VITALS: BP 126/72
[2017-11-24 04:38] VITALS: BP 124/82
[2017-11-24 07:45] VITALS: BP 124/84
[2017-11-24 08:04] LABS: HEMATOCRIT 43.8 % (42.0-52.0); HEMOGLOBIN 15.2 gm/dL (14.0-18.0); MCH 34.6 pg (26.0-34.0); MCHC 34.6 g/dL (28.0-37.0); MCV 99.9 fL (80.0-100.0); RBC 4.39 mil/uL (4.50-6.00); RDW 16.2 % (10.5-14.5); WBC 4.1 thou/uL (4.0-11.0)
[2017-11-24 08:17] LABS: CALCIUM 8.6 mg/dL (8.5-10.1); CREATININE 0.8 mg/dL (0.7-1.3); POTASSIUM 3.4 mmol/L (3.5-5.1)
[2017-11-24 16:32] VITALS: BP 109/67
[2017-11-24 19:08] VITALS: BP 120/69
[2017-11-25 04:15] VITALS: BP 125/68
[2017-11-25 05:55] LABS: CALCIUM 8.1 mg/dL (8.5-10.1); CREATININE 0.8 mg/dL (0.7-1.3); POTASSIUM 3.8 mmol/L (3.5-5.1)
[2017-11-25 08:00] VITALS: BP 124/70
[2017-11-25 16:00] VITALS: BP 100/60
[2017-11-25 19:52] VITALS: BP 88/58
[2017-11-26 04:07] VITALS: BP 127/78
[2017-11-26 10:04] VITALS: BP 104/57
[2017-11-26 10:48] VITALS: BP 104/57
[2017-11-26 16:31] VITALS: BP 97/66
[2017-11-26 20:46] VITALS: BP 138/88
[2017-11-27 04:47] VITALS: BP 123/80
[2017-11-27 08:00] VITALS: BP 130/79
[2017-11-27 16:00] VITALS: BP 135/82
[2017-11-27 19:12] VITALS: BP 117/97
[2017-11-28 04:03] VITALS: BP 129/81
[2017-11-28 08:58] VITALS: BP 124/83
[2017-11-28 17:38] VITALS: BP 124/73
[2017-11-28 17:40] VITALS: BP 124/73
[2017-11-28 19:52] VITALS: BP 97/60
[2017-11-29 04:22] VITALS: BP 96/61
[2017-11-29 07:20] VITALS: BP 140/90
[2017-11-29 09:56] LABS: ABSOLUTE NEUTROPHILS 4.1 thou/uL (1.4-8.2); BASOPHILS 1.4 % (0.0-2.0); EOSINOPHILS 3.2 % (0.0-3.0); HEMATOCRIT 44.9 % (42.0-52.0); HEMOGLOBIN 15.3 gm/dL (14.0-18.0); LYMPHOCYTES 10.7 % (24.0-44.0); MCH 34.6 pg (26.0-34.0); MCV 101.6 fL (80.0-100.0); POLYS 78.7 % (36.0-66.0); RBC 4.42 mil/uL (4.50-6.00); RDW 16.1 % (10.5-14.5); WBC 5.2 thou/uL (4.0-11.0)
[2017-11-29 10:06] LABS: CALCIUM 8.5 mg/dL (8.5-10.1); CREATININE 0.9 mg/dL (0.7-1.3); POTASSIUM 4.6 mmol/L (3.5-5.1)
[2017-11-29 10:45] LABS: LARGE PLATELETS FEW; PLATELET COUNT 69 thou/uL (150-400)
[2017-11-29] MEDS ORDERED: VANCOMYCIN HCL10 GM PO (14:27)
[2017-11-29] MEDS ORDERED: HYDROCODONE-AP1 EAC6 PO (14:27)
== END 2017-11-29 16:06 | DRG 371 ==
LOC: ER 15:11 → EROBS 17:21 → 4W 17:21
PROVIDERS: Emergency Medicine; Hospitalist
DX: A04.72 Enterocolitis due to Clostridium difficile, not specified as recurrent (principal); E43 Unspecified severe protein-calorie malnutrition; E11.9 Type 2 diabetes mellitus without complications; E03.9 Hypothyroidism, unspecified; I10 Essential (primary) hypertension; E87.6 Hypokalemia; K21.9 Gastro-esophageal reflux disease without esophagitis; I48.91 Unspecified atrial fibrillation; J44.9 Chronic obstructive pulmonary disease, unspecified; Z88.1 Allergy status to other antibiotic agents; Z73.6 Limitation of activities due to disability; Z87.442 Personal history of urinary calculi; Z85.46 Personal history of malignant neoplasm of prostate; Z87.891 Personal history of nicotine dependence; Z91.14 Patient's other noncompliance with medication regimen
CPT/HCPCS: 10045; 10047